=== PATIENT | male | born 1980 ===

== ENCOUNTER 2019-06-13 21:50 | Emergency (ER) | payer OTHER ==
[~2019-06-13] VITALS: Ht 167.6 cm; Wt 60.3 kg
[2019-06-14] MEDS ORDERED: Keflex500 MG PO (00:25)
== END 2019-06-14 00:40 | disposition home or self-care (01) ==
LOC: ER 21:50
DX: S92.412B Displaced fracture of proximal phalanx of left great toe, initial encounter for open fracture (principal); S92.422B Displaced fracture of distal phalanx of left great toe, initial encounter for open fracture; S91.112A Laceration without foreign body of left great toe without damage to nail, initial encounter; Z23 Encounter for immunization; W22.8XXA Striking against or struck by other objects, initial encounter
CPT/HCPCS: 12002; 73630; 90471; 90714; 99283-25; A9270; A9270-GY